=== PATIENT | female | born 1965 | race African-American/Black ===

== ENCOUNTER 2019-12-17 17:05 | Inpatient (IN) | payer OTHER ==
--- NOTE | 2019-12-17 19:13 | HP ---
CIWA Score Nausea/Vomitin Muscle Tremors: 1-None Visible, but Omega Anxiety: 4-Mod. Anxious/Guarded Agitation: 1-Slight > Activity Paroxysmal Sweats: 1-Minimal Palms Moist Orientation: 0-Oriented Tacttile Disturbances: 0-None Auditory Disturbances: 0-None Headache: 2-Mild - Admission Criteria OASAS Guidelines: Admission for Medically Managed Detox: Requires at least one of the followin. CIWA greater than 12 2. Seizures within the past 24 hours 3. Delirium tremens within the past 24 hours 4. Hallucinations within the past 24 hours 5. Acute intervention needed for co occurring medical disorder 6. Acute intervention needed for co occurring psychiatric disorder 7. Severe withdrawal that cannot be handled at a lower level of care (continued vomiting, continued diarrhea, abnormal vital signs) requiring intravenous medication and/or fluids 8. Admitting History and Physical - Admission History of Present Illness: Patient is a 54 y.o. F PMHx GERD, Bipolar, depression presenting to [facility] for detox. Patient was examined in the room in no acute distress. 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 Crack 50$ a day. 1/2 pack cigarettes a day. 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 No: Pneumonia, Pulmonary Embolus Gastrointestinal: Yes: GERD. No: GI Bleed Hepatobiliary: No: Hepatitis A, Hepatitis B, Hepatitis C Infectious Disease: No: HIV, STD's Psych: Yes: Anxiety, Bipolar, Depression - Past Surgical History Past Surgical History: Yes: Bariatric Surgery (2016) - Smoking History Smoking history: Current every day smoker Have you smoked in the past 12 months: Yes Aproximately how many cigarettes per day: 10 - Alcohol/Substance Use Hx Alcohol Use: Yes Number of Drinks Daily: 15 History of Substance Use: reports: Cocaine - Social History Usual Living Arrangement: Yes: Alone ADL: Independent History of Recent Travel: No Admission ROS [facility] Allergies/Adverse Reactions: Allergies Allergy/AdvReac Type Severity Reaction Status Date / Time shellfish derived Allergy Severe Verified 12/17/19 20:24 bee venom protein (honey bee) Allergy Mild Verified 12/17/19 20:24 Exam Limitations: No Limitations - Ebola screening Have you traveled outside of the country in the last 21 days: No Have you had contact with anyone from an Ebola affected area: No Have you been sick,other than usual withdrawal symptoms: No Do you have a fever: No - Review of Systems Constitutional: No Symptoms Reported EENT: denies: Blurred Vision, Double Vision Respiratory: reports: Cough. denies: Shortness of Breath Cardiac: reports: Lightheadedness. denies: Chest Pain GI: reports: Nausea. denies: Constipated, Diarrhea, Vomiting : denies: Burning, Dysuria Musculoskeletal: denies: Muscle Weakness Neuro: reports: Headache Psychiatric: reports: Judgement Intact, Orientated x3, Anxious, Depressed Patient History - Smoking Cessation Smoking history: Current every day smoker Initiated information on smoking cessation: Yes 'Breaking Loose' booklet given: 12/18/19 Admission Physical Exam [facility] - Physical General Appearance: Yes: Within Normal Limits, No Apparent Distress, Nourished, Appropriately Dressed Respiratory: Yes: Lungs Clear, Decreased Breath Sounds, No Respiratory Distress, No Accessory Muscle Use Cardiology: Yes: Within Normal Limits, Regular Rhythm, Regular Rate Abdominal: Yes: Within Normal Limits, Normal Bowel Sounds, Non Tender, Flat, Soft Extremities: Yes: Within Normal Limits, Normal Inspection, Normal Range of Motion, Non-Tender Neurological: Yes: Fully Oriented, Alert, Normal Mood/Affect, Normal Response Integumentary: Yes: Normal Color - Diagnostic (1) Alcohol abuse Current Visit: Yes Status: Acute (2) Alcohol abuse with alcohol-induced anxiety disorder Current Visit: Yes Status: Acute (3) Crack cocaine use Current Visit: Yes Status: Acute Cleared for Admission [facility] - Detox or Rehab [facility] Level of Care: Medically Managed Detox Regimen/Protocol: Librium Claeared for Rehab Admission: No Vital Signs - Vital Signs Vital signs refused: No Temperature: 98.8 F Pulse Rate: 90 Respiratory Rate: 18 Blood Pressure: 124/84 - Height Height: 1.75 m - Weight Weight: 94.347 kg - BMI Body Mass Index (BMI): 30.7 Inpatient Rehab Admission - Rehab Decision to Admit Inpatient rehab admission?: No
[2019-12-17] MEDS ORDERED: IBUPROFEN 400 MG TABLET (FP) PO PRN (19:30)
[2019-12-17] MEDS ORDERED: MAGNESIUM CITRATE 300 ML BOTTLE PO PRN (19:30)
[2019-12-17] MEDS ORDERED: MAG HYDROX/AL HYDROX/SIMETH 30 ML UNIT-DOSE CUP PO PRN (19:30)
[2019-12-17] MEDS ORDERED: chlordiazePOXIDE HCL 10 MG CAPSULE PO PRN (19:30)
[2019-12-17] MEDS ORDERED: NICOTINE POLACRILEX 2 MG GUM BUC PRN (19:30)
[2019-12-17] MEDS ORDERED: MAGNESIUM HYDROX 2400MG/30ML ORAL SUSPENSION 30 ML CUP PO PRN (19:30)
[2019-12-17] MEDS ORDERED: ACETAMINOPHEN 325 MG TABLET (FP) PO PRN ×2 (19:30)
[2019-12-17] MEDS ORDERED: METHOCARBAMOL 500 MG TABLET PO PRN (19:30)
[2019-12-17] MEDS ORDERED: BISMUTH SUBSALICYLATE 524 MG/30 ML UD PO PRN (19:30)
[2019-12-17] MEDS ORDERED: MENTHOL/PHENOL 1 EACH UD MM PRN (19:30)
--- NOTE | 2019-12-17 19:56 | PN ---
Teaching Attending Note Name of Resident: Rk Mitchell ATTENDING PHYSICIAN STATEMENT I saw and evaluated the patient. I reviewed the resident's note and discussed the case with the resident. I agree with the resident's findings and plan as documented. SUBJECTIVE: 54 yo with h/o bipolar here for detox from alcohol. First visit here. OBJECTIVE: Vital Signs - 24 hr 12/17/19 19:22 Temperature 98.8 F Pulse Rate 90 Respiratory 18 Rate Blood Pressure 124/84 ASSESSMENT AND PLAN: AUD- librium detox protocol consult for bipolar
[2019-12-17] MEDS ORDERED: ONDANSETRON *ODT* 4 MG TABLET SL ONE (20:15)
[2019-12-17] MEDS ORDERED: PNEUMOC 13-VAL CONJ-DIP CRM/PF 0.5 ML DISP.SYRIN IM ONE (20:19)
[2019-12-17] MEDS: chlordiazePOXIDE HCL 25 MG CAPSULE PO SCH (22:30)
[2019-12-17] MEDS: THIAMINE HCL 100 MG TABLET (FP) PO SCH (22:30)
[2019-12-17] MEDS: MELATONIN 5 MG TABLETS PO SCH (22:30)
[2019-12-17] MEDS: hydrOXYzine PAMOATE 25 MG CAPSULE (FP) PO SCH (22:31)
[2019-12-18] MEDS: hydrOXYzine PAMOATE 25 MG CAPSULE (FP) PO SCH (06:35)
[2019-12-18] MEDS: chlordiazePOXIDE HCL 25 MG CAPSULE PO SCH ×3 (06:35→22:35)
[2019-12-18] MEDS ORDERED: hydrOXYzine PAMOATE 25 MG CAPSULE (FP) PO PRN (09:57)
--- NOTE | 2019-12-18 10:33 | CONSULT ---
[facility] Psychiatric Consult - Data Date of interview: 12/18/19 Admission source: Self-referred Identifying data: Ms Roman is a 54 years old single Black female, mother of 3 children, unemployed receiving SSI, domiciled seeking detox treatment for alcohol and cocaine Substance Abuse History: Reports history of alcohol and crack cocaine use. Refer to addiction counselor's summary for further information Medical History: Significant for bronchial asthma, GERD and bariatric surgery [id number] weight loss. Smokes 10 cigarettes daily Psychiatric History: This is patient's first admission to this facility. She reports that her first psychiatric contact occured approximately 20 years ago while at an inpatient substance rehab. She said that she was diagnosed with Bipolar Disorder, PTSD and started on psychotropic medications. Reports that since, she has been receiving psychiatric treatment on & off. Reports that she currently sees a psychiatric at [facility], a clinic at [address] [place] [address]. 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 [facility], [address] [place] [address] [phone]. According to pharmacy staff, scripts for Lamictal 150 mg/day & Prazosin 1 mg/hs were filled on 12/01/19 and for Trazadone 100 mg/hs & Vistaril 50 mg/bid were filled on 10/06/19. Denies previous psychiatric hospitalization or suicidal attempt. At present, denies experiencing psychotic, manic symptoms, S/H ideations. However, reports feeling depressed and sleeping poorly Mental Status Exam - Mental Status Exam Alert and Oriented to: Time, Place, Person Cognitive Function: Fair Patient Appearance: Well Groomed Mood: Depressed, Anxious Affect: Appropriate Speech Pattern: Clear Voice Loudness: Normal Thought Process: Intact, Goal Oriented Hallucinations: Denies Suicidal Ideation: Denies Insight/Judgement: Poor Sleep: Poorly Appetite: Fair Muscle strength/Tone: Normal Gait/Station: Normal Psychiatric Findings - Problem List (Mccarr 1, 2,3) (1) Bipolar disorder Current Visit: Yes Status: Chronic (2) PTSD (post-traumatic stress disorder) Current Visit: Yes Status: Acute (3) Substance induced mood disorder Current Visit: Yes Status: Acute (4) Substance-induced sleep disorder Current Visit: Yes Status: Acute (5) Alcohol dependence, uncomplicated Current Visit: Yes Status: Acute (6) Cocaine dependence Current Visit: Yes Status: Acute (7) Nicotine dependence Current Visit: Yes Status: Chronic (8) GERD (gastroesophageal reflux disease) Current Visit: Yes Status: Chronic (9) Bronchial asthma Current Visit: Yes Status: Chronic (10) Bariatric surgery status Current Visit: Yes Status: Resolved - Initial Treatment Plan Initial Treatment Plan: 1) Continue Lamictal 150 mg po daily, Prazosin 1 mg po HS. 2) Start Trazadone 100 mg po HS and Vistaril 50 mg po Q 4hrs prn for anxiety. 3) Continue inpatient detoxificatin
[2019-12-18] MEDS: NICOTINE 7 MG/24 HOURS TOPICAL PATCH TD SCH (11:29)
[2019-12-18] MEDS: PRENATAL VITAMINS W/ FOLIC ACID TABLET (FP) PO SCH (11:29)
[2019-12-18] MEDS ORDERED: PNEUMOC 13-VAL CONJ-DIP CRM/PF 0.5 ML DISP.SYRIN IM ONE (12:00)
[2019-12-18] MEDS ORDERED: PNEUMOCOCCAL 23 VACCINE 0.5 ML VIAL IM ONE (12:00)
--- NOTE | 2019-12-18 12:18 | PN ---
[facility] CIWA - CIWA Score Nausea/Vomitin-No Nausea/No Vomiting Muscle Tremors: 2 Anxiety: 2 Agitation: 3 Paroxysmal Sweats: 2 Orientation: 0-Oriented Tacttile Disturbances: 0-None Auditory Disturbances: 0-None Visual Disturbances: 0-None Headache: 0-None Present CIWA-Ar Total Score: 9 [facility] Progress Note (SOAP) Subjective: sweats mild shakes interrupted sleep anxiety Objective: 12/18/19 12:17 Vital Signs Temperature 97.8 F 12/18/19 08:47 Pulse Rate 95 H 12/18/19 08:47 Respiratory Rate 15 12/18/19 08:47 Blood Pressure 126/90 12/18/19 08:47 O2 Sat by Pulse Oximetry (%) 100 12/18/19 05:20 Laboratory Tests 12/17/19 19:08 POC Urine HCG, Qual Negative rest of labs pending aaox3 lying in bed no acute distress Assessment: 12/18/19 12:18 withdrawals Plan: continue detox pending labs
[2019-12-18 12:29] LABS: HEMATOCRIT 33.5 % (32.4-45.2); HEMOGLOBIN 10.6 GM/dL (10.7-15.3); MCH 26.1 pg (25.7-33.7); MCHC 31.5 g/dl (32.0-36.0); MEAN PLT VOLUME 8.5 fl (7.5-11.1); PLATELET COUNT 292 K/MM3 (134-434); RBC 4.04 M/mm3 (3.60-5.2); RDW 16.2 % (11.6-15.6); WHITE BLOOD COUNT 5.1 K/mm3 (4.0-10.0)
[2019-12-18 12:43] LABS: ALBUMIN 3.2 g/dl (3.4-5.0); BILIRUBIN,TOTAL 0.3 mg/dL (0.2-1); BLOOD UREA NITROGEN 12.8 mg/dL (7-18); CALCIUM 9.7 mg/dL (8.5-10.1); CREATININE 0.8 mg/dL (0.55-1.3); POTASSIUM 3.9 mmol/L (3.5-5.1); TOT PROT 6.7 g/dl (6.4-8.2)
[2019-12-18 13:11] VITALS: BMI 30.7
[2019-12-18] MEDS ORDERED: hydrOXYzine PAMOATE 50 MG CAPSULE (FP) PO PRN (22:00)
[2019-12-18] MEDS: THIAMINE HCL 100 MG TABLET (FP) PO SCH (22:35)
[2019-12-18] MEDS: MELATONIN 5 MG TABLETS PO SCH (22:35)
[2019-12-19] MEDS: chlordiazePOXIDE 5 MG CAPSULE PO SCH ×3 (05:17→20:13)
[2019-12-19] MEDS: NICOTINE 7 MG/24 HOURS TOPICAL PATCH TD SCH (10:36)
[2019-12-19] MEDS: PRENATAL VITAMINS W/ FOLIC ACID TABLET (FP) PO SCH (10:36)
--- NOTE | 2019-12-19 13:12 | PN ---
S CIWA - CIWA Score Nausea/Vomitin-No Nausea/No Vomiting Muscle Tremors: 2 Anxiety: 2 Agitation: 2 Paroxysmal Sweats: 2 Orientation: 0-Oriented Tacttile Disturbances: 0-None Auditory Disturbances: 0-None Visual Disturbances: 0-None Headache: 0-None Present CIWA-Ar Total Score: 8 S Progress Note (SOAP) Subjective: Complaints of shakes, anxiety, and sweats. Objective: 12/19/19 13:11 Vital Signs 12/19/19 12/19/19 05:16 09:18 Temperature 97.1 F L 97.7 F Pulse Rate 74 94 H Respiratory 16 18 Rate Blood Pressure 145/109 H 134/71 O2 Sat by Pulse 98 100 Oximetry (%) Laboratory Last Values WBC 5.1 K/mm3 (4.0-10.0) 12/18/19 08:40 RBC 4.04 M/mm3 (3.60-5.2) 12/18/19 08:40 Hgb 10.6 GM/dL (10.7-15.3) L 12/18/19 08:40 Hct 33.5 % (32.4-45.2) 12/18/19 08:40 MCV 83.0 fl (80-96) 12/18/19 08:40 MCH 26.1 pg (25.7-33.7) 12/18/19 08:40 MCHC 31.5 g/dl (32.0-36.0) L 12/18/19 08:40 RDW 16.2 % (11.6-15.6) H 12/18/19 08:40 Plt Count 292 K/MM3 (134-434) 12/18/19 08:40 MPV 8.5 fl (7.5-11.1) 12/18/19 08:40 Sodium 142 mmol/L (136-145) 12/18/19 08:40 Potassium 3.9 mmol/L (3.5-5.1) 12/18/19 08:40 Chloride 110 mmol/L (98-107) H 12/18/19 08:40 Carbon Dioxide 27 mmol/L (21-32) 12/18/19 08:40 Anion Gap 4 MMOL/L (8-16) L 12/18/19 08:40 BUN 12.8 mg/dL (7-18) 12/18/19 08:40 Creatinine 0.8 mg/dL (0.55-1.3) 12/18/19 08:40 Est GFR (CKD-EPI)AfAm 98.24 12/18/19 08:40 Est GFR (CKD-EPI)NonAf 84.76 12/18/19 08:40 Random Glucose 127 mg/dL (74-106) H 12/18/19 08:40 Calcium 9.7 mg/dL (8.5-10.1) 12/18/19 08:40 Total Bilirubin 0.3 mg/dL (0.2-1) 12/18/19 08:40 AST 25 U/L (15-37) 12/18/19 08:40 ALT 18 U/L (13-61) 12/18/19 08:40 Alkaline Phosphatase 81 U/L (45-117) 12/18/19 08:40 Total Protein 6.7 g/dl (6.4-8.2) 12/18/19 08:40 Albumin 3.2 g/dl (3.4-5.0) L 12/18/19 08:40 POC Urine HCG, Qual Negative 12/17/19 19:08 Syphilis Serology Reactive (NONREACTIVE) A* 12/18/19 08:40 Labs noted. Assessment: 12/19/19 13:11 Alert and oriented x 3, in no acute respiratory distress. Full ROM, ambulating in unit without assistance. Skin warm to touch without any lesions. Withdrawal symptoms. Plan: Continue detox protocol.
[2019-12-20] MEDS ORDERED: chlordiazePOXIDE HCL 10 MG CAPSULE PO PRN
[2019-12-20] MEDS: MELATONIN 5 MG TABLETS PO SCH ×2 (00:06→22:35)
[2019-12-20] MEDS: THIAMINE HCL 100 MG TABLET (FP) PO SCH ×2 (00:06→22:35)
[2019-12-20] MEDS: chlordiazePOXIDE HCL 10 MG CAPSULE PO SCH ×3 (06:32→22:35)
[2019-12-20] MEDS: PRENATAL VITAMINS W/ FOLIC ACID TABLET (FP) PO SCH (10:27)
[2019-12-20] MEDS: NICOTINE 7 MG/24 HOURS TOPICAL PATCH TD SCH (10:27)
--- NOTE | 2019-12-20 12:24 | PN ---
[facility] CIWA - CIWA Score Nausea/Vomitin-No Nausea/No Vomiting Muscle Tremors: 1-None Visible, but Hermann Anxiety: 2 Agitation: 1-Slight > Activity Paroxysmal Sweats: 1-Minimal Palms Moist Orientation: 0-Oriented Tacttile Disturbances: 0-None Auditory Disturbances: 0-None Visual Disturbances: 0-None Headache: 0-None Present CIWA-Ar Total Score: 5 [facility] Progress Note (SOAP) Subjective: C/O mild sweats, anxiety, irritability, and tremors. Objective: 12/20/19 12:23 Vital Signs 12/20/19 12/20/19 12/20/19 05:47 07:32 09:01 Temperature 96.2 F L 97.3 F L Pulse Rate 60 65 78 Respiratory 16 18 Rate Blood Pressure 139/101 H 117/61 117/73 O2 Sat by Pulse 98 100 Oximetry (%) Laboratory Last Values WBC 5.1 K/mm3 (4.0-10.0) 12/18/19 08:40 RBC 4.04 M/mm3 (3.60-5.2) 12/18/19 08:40 Hgb 10.6 GM/dL (10.7-15.3) L 12/18/19 08:40 Hct 33.5 % (32.4-45.2) 12/18/19 08:40 MCV 83.0 fl (80-96) 12/18/19 08:40 MCH 26.1 pg (25.7-33.7) 12/18/19 08:40 MCHC 31.5 g/dl (32.0-36.0) L 12/18/19 08:40 RDW 16.2 % (11.6-15.6) H 12/18/19 08:40 Plt Count 292 K/MM3 (134-434) 12/18/19 08:40 MPV 8.5 fl (7.5-11.1) 12/18/19 08:40 Sodium 142 mmol/L (136-145) 12/18/19 08:40 Potassium 3.9 mmol/L (3.5-5.1) 12/18/19 08:40 Chloride 110 mmol/L (98-107) H 12/18/19 08:40 Carbon Dioxide 27 mmol/L (21-32) 09/04/20 08:40 Anion Gap 4 MMOL/L (8-16) L 12/18/19 08:40 BUN 12.8 mg/dL (7-18) 12/18/19 08:40 Creatinine 0.8 mg/dL (0.55-1.3) 12/18/19 08:40 Est GFR (CKD-EPI)AfAm 98.24 12/18/19 08:40 Est GFR (CKD-EPI)NonAf 84.76 12/18/19 08:40 Random Glucose 127 mg/dL (74-106) H 12/18/19 08:40 Calcium 9.7 mg/dL (8.5-10.1) 12/18/19 08:40 Total Bilirubin 0.3 mg/dL (0.2-1) 12/18/19 08:40 AST 25 U/L (15-37) 12/18/19 08:40 ALT 18 U/L (13-61) 12/18/19 08:40 Alkaline Phosphatase 81 U/L (45-117) 12/18/19 08:40 Total Protein 6.7 g/dl (6.4-8.2) 12/18/19 08:40 Albumin 3.2 g/dl (3.4-5.0) L 12/18/19 08:40 POC Urine HCG, Qual Negative 12/17/19 19:08 Syphilis Serology Reactive (NONREACTIVE) A* 12/18/19 08:40 RPR Titer Reactive 1:1 (NONREACTIVE) H 12/18/19 08:40 COVID-19 (KRISTINA) Not detected (Not Detected) 12/17/19 20:30 Labs noted with reactive syphilis serology.. 12/20/19 13:16 Assessment: 12/20/19 12:23 Alert and oriented x 3, in no acute respiratory distress. Full ROM, ambulatory in unit without any assistance. Skin warm to touch without any lesions. Withdrawal symptoms. Reactive syphilis serology, denies any active lesions or sores. Was treated in the past for Syphilis. 12/20/19 13:15 Plan: Continue detox protocol.
[2019-12-21] MEDS ORDERED: chlordiazePOXIDE HCL 10 MG CAPSULE PO ONE (05:00)
[2019-12-21 09:23] VITALS: BP 141/97; PULSE 95; TEMP 97.6
--- NOTE | 2019-12-21 13:14 | DS ---
[facility] Detox Discharge Summary Admission Date: 12/17/19 Discharge Date: 12/21/19 - History Present History: Alcohol Dependence Additional Comments: Pt is medically cleared and discharged today. Pt completed the detox protocol. Pt is encouraged to follow-up with an outpatient CD program and also to follow- up with her pmd which she verbalized understanding. Pt is AOX3, in no acute respiratory distress, Full ROM, and ambulatory. Pertinent Past History: h/o alcohol use disorder. - Physical Exam Results Vital Signs: Vital Signs Temperature 97.6 F 12/21/19 08:33 Pulse Rate 95 H 12/21/19 08:33 Respiratory Rate 18 12/21/19 08:33 Blood Pressure 141/97 12/21/19 08:33 O2 Sat by Pulse Oximetry (%) 100 12/21/19 05:42 Vital Signs 12/21/19 12/21/19 05:42 08:33 Temperature 96.6 F L 97.6 F Pulse Rate 63 95 H Respiratory 20 18 Rate Blood Pressure 122/90 141/97 O2 Sat by Pulse 100 Oximetry (%) Laboratory Last Values WBC 5.1 K/mm3 (4.0-10.0) 12/18/19 08:40 RBC 4.04 M/mm3 (3.60-5.2) 12/18/19 08:40 Hgb 10.6 GM/dL (10.7-15.3) L 12/18/19 08:40 Hct 33.5 % (32.4-45.2) 12/18/19 08:40 MCV 83.0 fl (80-96) 12/18/19 08:40 MCH 26.1 pg (25.7-33.7) 12/18/19 08:40 MCHC 31.5 g/dl (32.0-36.0) L 12/18/19 08:40 RDW 16.2 % (11.6-15.6) H 12/18/19 08:40 Plt Count 292 K/MM3 (134-434) 12/18/19 08:40 MPV 8.5 fl (7.5-11.1) 12/18/19 08:40 Sodium 142 mmol/L (136-145) 12/18/19 08:40 Potassium 3.9 mmol/L (3.5-5.1) 12/18/19 08:40 Chloride 110 mmol/L (98-107) H 12/18/19 08:40 Carbon Dioxide 27 mmol/L (21-32) 12/18/19 08:40 Anion Gap 4 MMOL/L (8-16) L 12/18/19 08:40 BUN 12.8 mg/dL (7-18) 12/18/19 08:40 Creatinine 0.8 mg/dL (0.55-1.3) 12/18/19 08:40 Est GFR (CKD-EPI)AfAm 98.24 12/18/19 08:40 Est GFR (CKD-EPI)NonAf 84.76 12/18/19 08:40 Random Glucose 127 mg/dL (74-106) H 12/18/19 08:40 Calcium 9.7 mg/dL (8.5-10.1) 12/18/19 08:40 Total Bilirubin 0.3 mg/dL (0.2-1) 12/18/19 08:40 AST 25 U/L (15-37) 12/18/19 08:40 ALT 18 U/L (13-61) 12/18/19 08:40 Alkaline Phosphatase 81 U/L (45-117) 12/18/19 08:40 Total Protein 6.7 g/dl (6.4-8.2) 12/18/19 08:40 Albumin 3.2 g/dl (3.4-5.0) L 12/18/19 08:40 POC Urine HCG, Qual Negative 12/17/19 19:08 Syphilis Serology Reactive (NONREACTIVE) A* 12/18/19 08:40 RPR Titer Reactive 1:1 (NONREACTIVE) H 12/18/19 08:40 COVID-19 (KRISTINA) Not detected (Not Detected) 12/17/19 20:30 Labs noted. Pertinent Admission Physical Exam Findings: withdrawal symptoms. - Treatment Hospital Course: Detox Protocol Followed, Detoxed Safely, Responded well, Discharged Condition Good - Medication Discharge Medications: Ambulatory Orders Prazosin HCl [Minipress] 5 mg PO HS 12/17/19 traZODone HCL [Trazodone HCl] 1 tablet PO HS 12/17/19 - Diagnosis (1) Alcohol dependence, uncomplicated Status: Acute (2) Cocaine dependence Status: Chronic (3) Bronchial asthma Status: Chronic (4) GERD (gastroesophageal reflux disease) Status: Chronic (5) Nicotine dependence Status: Chronic - AMA Did Patient Leave Against Medical Advice: No
== END 2019-12-21 10:40 | disposition home or self-care (01) | DRG 897 ==
LOC: YASAS 17:05 → Y6N 19:33
PROVIDERS: ADMIT Allergy & Immunology; ATTEND Allergy & Immunology
PROC: HZ2ZZZZ Detoxification Services for Substance Abuse Treatment (ICD-10-PCS; principal; 2019-12-17)
DX: F10.230 Alcohol dependence with withdrawal, uncomplicated (principal); F14.20 Cocaine dependence, uncomplicated; F19.282 Other psychoactive substance dependence with psychoactive substance-induced sleep disorder; F17.210 Nicotine dependence, cigarettes, uncomplicated; F31.9 Bipolar disorder, unspecified; F19.24 Other psychoactive substance dependence with psychoactive substance-induced mood disorder; F41.9 Anxiety disorder, unspecified; F43.10 Post-traumatic stress disorder, unspecified; J45.909 Unspecified asthma, uncomplicated; K21.9 Gastro-esophageal reflux disease without esophagitis; Z98.84 Bariatric surgery status; Z56.0 Unemployment, unspecified; Z91.013 Allergy to seafood; Z91.030 Bee allergy status
CPT/HCPCS: 36415; 80053; 81025; 85027; 86593; 86780; Q0162; U0003

== ENCOUNTER 2020-04-01 19:46 | Inpatient (IN) | payer OTHER ==
[2020-04-01 21:17] VITALS: BMI 35.0
[2020-04-01] MEDS ORDERED: LOPERAMIDE HCL 2 MG CAPSULE PO PRN (22:25)
[2020-04-01] MEDS ORDERED: IBUPROFEN 400 MG TABLET (FP) PO PRN (22:25)
[2020-04-01] MEDS ORDERED: P-EPHED 60MG/TRIPROLIDI 2.5MG TABLET PO PRN (22:25)
[2020-04-01] MEDS ORDERED: NICOTINE POLACRILEX 2 MG GUM BC PRN (22:25)
[2020-04-01] MEDS ORDERED: MAG HYDROX/AL HYDROX/SIMETH 30 ML UNIT-DOSE CUP PO PRN (22:25)
[2020-04-01] MEDS ORDERED: ACETAMINOPHEN 325 MG TABLET (FP) PO PRN (22:25)
[2020-04-01] MEDS ORDERED: hydrOXYzine PAMOATE 25 MG CAPSULE (FP) PO PRN (22:25)
[2020-04-01] MEDS ORDERED: guaiFENesin 200 MG/10 ML 10 ML UNIT-DOSE CUPS PO PRN (22:25)
[2020-04-01] MEDS ORDERED: MAGNESIUM CITRATE 300 ML BOTTLE PO PRN (22:25)
[2020-04-01] MEDS ORDERED: MAGNESIUM HYDROX 2400MG/30ML ORAL SUSPENSION 30 ML CUP PO PRN (22:25)
[2020-04-02] MEDS: MELATONIN 5 MG TABLETS PO SCH ×2 (00:02→21:06)
[2020-04-02] MEDS: GABAPENTIN 300 MG CAPSULE PO SCH ×3 (06:41→21:07)
[2020-04-02] MEDS: NICOTINE 14 MG/24 HOURS TOPICAL PATCH TD SCH (10:27)
[2020-04-02] MEDS: PRENATAL VITAMINS W/ FOLIC ACID TABLET (FP) PO SCH (10:27)
[2020-04-02] MEDS: PANTOPRAZOLE 20 MG TABLET PO SCH (10:27)
[2020-04-02 11:53] LABS: HEMATOCRIT 31.4 % (32.4-45.2); HEMOGLOBIN 9.7 GM/dL (10.7-15.3); MCHC 30.8 g/dl (32.0-36.0); MEAN PLT VOLUME 8.4 fl (7.5-11.1); PLATELET COUNT 278 K/MM3 (134-434); RBC 3.88 M/mm3 (3.60-5.2); RDW 16.7 % (11.6-15.6); WHITE BLOOD COUNT 4.8 K/mm3 (4.0-10.0)
[2020-04-02 11:59] LABS: CALCIUM 9.6 mg/dL (8.5-10.1)
[2020-04-02 12:00] LABS: ALBUMIN 3.2 g/dl (3.4-5.0); BLOOD UREA NITROGEN 14.3 mg/dL (7-18)
[2020-04-02 12:03] LABS: CREATININE 0.7 mg/dL (0.55-1.3)
[2020-04-02 12:04] LABS: BILIRUBIN,TOTAL 0.5 mg/dL (0.2-1); TOT PROT 6.4 g/dl (6.4-8.2)
[2020-04-02 12:24] LABS: SICKLE CELL SCREEN NEGATIVE (NEGATIVE)
[2020-04-02 19:06] LABS: URINE APPEARANCE CLEAR; URINE BILIRUBIN NEGATIVE (NEGATIVE); URINE COLOR YELLOW; URINE GLUCOSE (UA) NEGATIVE (NEGATIVE); URINE KETONE NEGATIVE (NEGATIVE); URINE LEUK ESTERASE NEGATIVE (NEGATIVE); URINE NITRITE NEGATIVE (NEGATIVE); URINE PROTEIN NEGATIVE (NEGATIVE); URINE UROBILINOGEN 0.2 mg/dL (0.2-1.0)
[2020-04-02] MEDS: THIAMINE HCL 100 MG TABLET (FP) PO SCH (21:06)
[2020-04-03] MEDS: GABAPENTIN 300 MG CAPSULE PO SCH ×3 (06:18→21:16)
[2020-04-03] MEDS: NICOTINE 14 MG/24 HOURS TOPICAL PATCH TD SCH (09:56)
[2020-04-03] MEDS: PANTOPRAZOLE 20 MG TABLET PO SCH (09:56)
[2020-04-03] MEDS: PRENATAL VITAMINS W/ FOLIC ACID TABLET (FP) PO SCH (09:56)
[2020-04-03] MEDS: THIAMINE HCL 100 MG TABLET (FP) PO SCH (21:16)
[2020-04-03] MEDS: MELATONIN 5 MG TABLETS PO SCH (21:16)
[2020-04-04] MEDS: GABAPENTIN 300 MG CAPSULE PO SCH ×3 (06:14→21:06)
[2020-04-04] MEDS: PRENATAL VITAMINS W/ FOLIC ACID TABLET (FP) PO SCH (09:42)
[2020-04-04] MEDS: PANTOPRAZOLE 20 MG TABLET PO SCH (09:42)
[2020-04-04] MEDS: NICOTINE 14 MG/24 HOURS TOPICAL PATCH TD SCH (09:42)
[2020-04-04] MEDS: THIAMINE HCL 100 MG TABLET (FP) PO SCH (21:04)
[2020-04-04] MEDS: MELATONIN 5 MG TABLETS PO SCH (21:04)
[2020-04-04] MEDS: PRAZOSIN HCL 1 MG CAPSULE PO SCH (21:05)
[2020-04-04] MEDS: hydrOXYzine PAMOATE 50 MG CAPSULE (FP) PO SCH (21:05)
[2020-04-04] MEDS: traZODone HCL 100 MG TABLET (FP) PO SCH (21:05)
[2020-04-04] MEDS ORDERED: PT OWN MED DRAWER 7, Y5N ONE (23:29)
[2020-04-05] MEDS: GABAPENTIN 300 MG CAPSULE PO SCH ×3 (06:32→21:04)
[2020-04-05] MEDS: PRENATAL VITAMINS W/ FOLIC ACID TABLET (FP) PO SCH (09:39)
[2020-04-05] MEDS: PANTOPRAZOLE 20 MG TABLET PO SCH (09:39)
[2020-04-05] MEDS: hydrOXYzine PAMOATE 50 MG CAPSULE (FP) PO SCH ×2 (09:39→21:04)
[2020-04-05] MEDS: NICOTINE 14 MG/24 HOURS TOPICAL PATCH TD SCH (09:40)
[2020-04-05 11:29] LABS: HIV INTERPRETATION NEGATIVE (NEGATIVE)
[2020-04-05] MEDS: PRAZOSIN HCL 1 MG CAPSULE PO SCH (21:04)
[2020-04-05] MEDS: THIAMINE HCL 100 MG TABLET (FP) PO SCH (21:04)
[2020-04-05] MEDS: traZODone HCL 100 MG TABLET (FP) PO SCH (21:04)
[2020-04-05] MEDS: MELATONIN 5 MG TABLETS PO SCH (21:04)
[2020-04-06] MEDS: GABAPENTIN 300 MG CAPSULE PO SCH ×3 (06:30→21:10)
[2020-04-06] MEDS: PRENATAL VITAMINS W/ FOLIC ACID TABLET (FP) PO SCH (09:48)
[2020-04-06] MEDS: NICOTINE 14 MG/24 HOURS TOPICAL PATCH TD SCH (09:48)
[2020-04-06] MEDS: PANTOPRAZOLE 20 MG TABLET PO SCH (09:48)
[2020-04-06] MEDS: hydrOXYzine PAMOATE 50 MG CAPSULE (FP) PO SCH ×2 (09:49→21:11)
[2020-04-06] MEDS: MELATONIN 5 MG TABLETS PO SCH (21:10)
[2020-04-06] MEDS: PRAZOSIN HCL 1 MG CAPSULE PO SCH (21:10)
[2020-04-06] MEDS: traZODone HCL 100 MG TABLET (FP) PO SCH (21:10)
[2020-04-06] MEDS: THIAMINE HCL 100 MG TABLET (FP) PO SCH (21:10)
[2020-04-06] MEDS: metroNIDAZOLE 0.75% VAGINAL GEL 70 GM TUBE VG SCH (21:13)
[2020-04-07] MEDS: GABAPENTIN 300 MG CAPSULE PO SCH ×3 (06:28→21:35)
[2020-04-07] MEDS: PANTOPRAZOLE 20 MG TABLET PO SCH (09:27)
[2020-04-07] MEDS: FERROUS SO4 325 MG TABLET (FP) PO SCH (09:27)
[2020-04-07] MEDS: hydrOXYzine PAMOATE 50 MG CAPSULE (FP) PO SCH ×2 (09:27→21:35)
[2020-04-07] MEDS: PRENATAL VITAMINS W/ FOLIC ACID TABLET (FP) PO SCH (09:27)
[2020-04-07] MEDS: NICOTINE 14 MG/24 HOURS TOPICAL PATCH TD SCH (09:27)
[2020-04-07] MEDS: MELATONIN 5 MG TABLETS PO SCH (21:35)
[2020-04-07] MEDS: traZODone HCL 100 MG TABLET (FP) PO SCH (21:35)
[2020-04-07] MEDS: PRAZOSIN HCL 1 MG CAPSULE PO SCH (21:35)
[2020-04-07] MEDS: THIAMINE HCL 100 MG TABLET (FP) PO SCH (21:35)
[2020-04-07] MEDS: metroNIDAZOLE 0.75% VAGINAL GEL 70 GM TUBE VG SCH (21:50)
[2020-04-08] MEDS: GABAPENTIN 300 MG CAPSULE PO SCH ×3 (06:35→21:10)
[2020-04-08] MEDS: NICOTINE 14 MG/24 HOURS TOPICAL PATCH TD SCH (10:09)
[2020-04-08] MEDS: PRENATAL VITAMINS W/ FOLIC ACID TABLET (FP) PO SCH (10:09)
[2020-04-08] MEDS: hydrOXYzine PAMOATE 50 MG CAPSULE (FP) PO SCH ×2 (10:09→21:10)
[2020-04-08] MEDS: PANTOPRAZOLE 20 MG TABLET PO SCH (10:09)
[2020-04-08] MEDS: FERROUS SO4 325 MG TABLET (FP) PO SCH (10:09)
[2020-04-08] MEDS: MELATONIN 5 MG TABLETS PO SCH (21:10)
[2020-04-08] MEDS: traZODone HCL 100 MG TABLET (FP) PO SCH (21:10)
[2020-04-08] MEDS: THIAMINE HCL 100 MG TABLET (FP) PO SCH (21:10)
[2020-04-08] MEDS: PRAZOSIN HCL 1 MG CAPSULE PO SCH (21:12)
[2020-04-08] MEDS ORDERED: PT OWN MED DRAWER 7, Y5N ONE (21:12)
[2020-04-08] MEDS: metroNIDAZOLE 0.75% VAGINAL GEL 70 GM TUBE VG SCH (21:12)
[2020-04-09] MEDS: GABAPENTIN 300 MG CAPSULE PO SCH ×2 (07:01→14:09)
[2020-04-09] MEDS ORDERED: MASKS NR ONE (08:53)
[2020-04-09] MEDS: PRENATAL VITAMINS W/ FOLIC ACID TABLET (FP) PO SCH (10:02)
[2020-04-09] MEDS: FERROUS SO4 325 MG TABLET (FP) PO SCH (10:02)
[2020-04-09] MEDS: NICOTINE 14 MG/24 HOURS TOPICAL PATCH TD SCH (10:02)
[2020-04-09] MEDS: hydrOXYzine PAMOATE 50 MG CAPSULE (FP) PO SCH (10:03)
[2020-04-09] MEDS: PANTOPRAZOLE 20 MG TABLET PO SCH (10:03)
[2020-04-09 19:56] VITALS: BP 108/62; PULSE 93; TEMP 97.7
== END 2020-04-09 20:20 | disposition home or self-care (01) | DRG 895 ==
LOC: YASAS 19:46 → Y3E 22:47 → Y3W 04-07 16:29
PROVIDERS: ADMIT Allergy & Immunology; ATTEND Allergy & Immunology
PROC: HZ42ZZZ Group Counseling for Substance Abuse Treatment, Cognitive-Behavioral (ICD-10-PCS; principal; 2020-04-01)
DX: F10.20 Alcohol dependence, uncomplicated (principal); F14.20 Cocaine dependence, uncomplicated; F19.282 Other psychoactive substance dependence with psychoactive substance-induced sleep disorder; F17.210 Nicotine dependence, cigarettes, uncomplicated; F19.24 Other psychoactive substance dependence with psychoactive substance-induced mood disorder; F43.10 Post-traumatic stress disorder, unspecified; J45.20 Mild intermittent asthma, uncomplicated; K21.9 Gastro-esophageal reflux disease without esophagitis; N76.0 Acute vaginitis; B96.89 Other specified bacterial agents as the cause of diseases classified elsewhere; Z62.810 Personal history of physical and sexual abuse in childhood; Z91.410 Personal history of adult physical and sexual abuse; Z91.013 Allergy to seafood; Z91.038 Other insect allergy status
CPT/HCPCS: 36415; 80053; 81003; 81025; 85027; 85660; 86593; 86780; 87389; 93005; 93010